=== PATIENT | male | born 1985 | race Caucasian/White ===

== ENCOUNTER 2018-12-29 10:50 | Emergency (ER) | payer OTHER, MEDICAID ==
[~2018-12-29] VITALS: Ht 165.1 cm; Wt 70.3 kg
[2018-12-29 10:50] VITALS: BP_SYST 136
== END 2018-12-29 12:47 | disposition left against medical advice (07) ==
LOC: SED 10:50
DX: H92.03 Otalgia, bilateral (principal); Z53.21 Procedure and treatment not carried out due to patient leaving prior to being seen by health care provider